=== PATIENT | male | born 1960 | race Caucasian/White ===

== ENCOUNTER 2022-02-25 22:29 | Observation (INO) | payer BC, OTHER ==
[~2022-02-25] VITALS: Ht 180.3 cm; Wt 64.9 kg
[2022-02-25] MEDS ORDERED: NS IV 1000 ML 1,000 ML IV SCH (22:45)
[2022-02-25] MEDS ORDERED: TETANUS,DIPTH,PERTUSS P/F (BOOSTRIX) 0.5 ML VIAL IM ONE (22:45)
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
[2022-02-25 23:09] LABS: BASOPHILS # (AUTO) 0.1 10^3/uL (0.0-0.1); BASOPHILS % (AUTO) 1 % (0-10); EOSINOPHILS # (AUTO) 0.1 10^3/uL (0.0-0.3); EOSINOPHILS % (AUTO) 1 % (0-10); HEMATOCRIT 40 % (40-54); HEMOGLOBIN 14.7 g/dL (13.3-17.7); LYMPHOCYTES # (AUTO) 1.2 10^3/uL (1.0-4.0); LYMPHOCYTES % (AUTO) 13 % (12-44); MEAN CORPUSCULAR HEMOGLOBIN 31 pg (25-34); MEAN CORPUSCULAR HGB CONC 37 g/dL (32-36); MEAN CORPUSCULAR VOLUME 85 fL (80-99); MONOCYTES # (AUTO) 0.4 10^3/uL (0.0-1.0); MONOCYTES % (AUTO) 4 % (0-12); NEUTROPHILS # (AUTO) 7.4 10^3/uL (1.8-7.8); NEUTROPHILS % (AUTO) 81 % (42-75); PLATELET COUNT 218 10^3/uL (130-400); WHITE BLOOD COUNT 9.1 10^3/uL (4.3-11.0)
[2022-02-25] MEDS ORDERED: NS 100 ML (IVPB) BAG IV ONE (23:15)
[2022-02-25] MEDS ORDERED: IOHEXOL 350 MG/ML 100 ML (OMNIPAQUE 350) VIAL IV ONE (23:15)
[2022-02-25] MEDS ORDERED: HOLD METFORMIN - RECEIVED CONTRAST 20 ML VIAL IV SCH (23:15)
[2022-02-25] MEDS ORDERED: CATHETER FLUSH 10 ML SYR IV PRN (23:15)
[2022-02-25 23:16] LABS: FIBRIN DEGRADATION PRODUCTS 2.16 UG/ML (0.00-0.49); INR 0.9 (0.8-1.4); PROTHROMBIN TIME PATIENT 12.4 SEC (12.2-14.7)
[2022-02-25 23:25] LABS: ALANINE AMINOTRANSFERASE < 6 U/L (0-55); ALBUMIN 3.3 GM/DL (3.2-4.5); ALKALINE PHOSPHATASE 93 U/L (40-136); AMYLASE 95 U/L (25-125); BILIRUBIN,TOTAL 0.5 MG/DL (0.1-1.0); BUN/CREATININE RATIO 11; CALCIUM 8.4 MG/DL (8.5-10.1); CARBON DIOXIDE 21 MMOL/L (21-32); CHLORIDE 99 MMOL/L (98-107); CREATINE KINASE 79 U/L (30-200); CREATININE SERUM 1.17 MG/DL (0.60-1.30); GFR ESTIMATED 71; LIPASE 45 U/L (8-78); MAGNESIUM 1.7 MG/DL (1.6-2.4); SODIUM 134 MMOL/L (135-145); TOTAL PROTEIN 5.5 GM/DL (6.4-8.2)
[2022-02-25 23:34] LABS: ACETAMINOPHEN < 10 UG/ML (10-30); GLUCOSE 603 MG/DL (70-105)
[2022-02-26] MEDS ORDERED: NS IV 1000 ML 1,000 ML IV SCH
[2022-02-26] MEDS ORDERED: inSUlin (REGULAR) HUMAN 1 UNIT/0.01 ML (CHARGE PER UNIT) IV ONE
[2022-02-26] MEDS ORDERED: LIDOCAINE 2% VISCOUS 15 ML UDC MM ONE (00:15)
[2022-02-26 00:25] LABS: BILIRUBIN,URINE NEGATIVE (NEGATIVE); CLARITY,URINE CLEAR; COLOR,URINE YELLOW; GLUCOSE, URINE (UA) 3+ (NEGATIVE); KETONES,URINE 1+ (NEGATIVE); LEUKOCYTE ESTERASE ,URINE NEGATIVE (NEGATIVE); NITRITE,URINE NEGATIVE (NEGATIVE); PROTEIN,URINE NEGATIVE (NEGATIVE)
[2022-02-26 00:37] LABS: BACTERIA,URINE NEGATIVE /HPF
[2022-02-26 00:38] LABS: AMPHETAMINE SCREEN, URINE NEGATIVE (NEGATIVE); BARBITURATE SCREEN URINE NEGATIVE (NEGATIVE); BENZODIAZEPINES SCREEN URINE NEGATIVE (NEGATIVE); CANNABINOID SCREEN, URINE NEGATIVE (NEGATIVE); COCAINE SCREEN URINE NEGATIVE (NEGATIVE); METHADONE STAT NEGATIVE (NEGATIVE); OPIATE SCREEN URINE NEGATIVE (NEGATIVE); OXYCODONE STAT NEGATIVE (NEGATIVE); PROPOXYPHENE STAT NEGATIVE (NEGATIVE); TRICYCLIC ANTIDEPRESSANTS SCRE NEGATIVE (NEGATIVE)
[2022-02-26] MEDS ORDERED: PATIENT MAY USE OWN MEDS, ALL MC SCH ×3 (01:45→13:30)
[2022-02-26] MEDS ORDERED: KETOROLAC 30 MG/ML VIAL IV PRN (02:15)
[2022-02-26] MEDS ORDERED: ONDANSETRON 4 MG/2 ML (SDV) Z0FRAN IV PRN (02:15)
[2022-02-26] MEDS ORDERED: fentaNYL INJ 100 MCG/2 ML AMP IV PRN (02:15)
[2022-02-26] MEDS: NS IV 1000 ML 1,000 ML IV SCH ×2 (02:21→08:49)
[2022-02-26 03:22] VITALS: BP 127/78
[2022-02-26 06:00] LABS: BASOPHILS % (AUTO) 0 % (0-10); EOSINOPHILS # (AUTO) 0.2 10^3/uL (0.0-0.3); EOSINOPHILS % (AUTO) 2 % (0-10); HEMATOCRIT 38 % (40-54); HEMOGLOBIN 13.1 g/dL (13.3-17.7); LYMPHOCYTES # (AUTO) 1.6 10^3/uL (1.0-4.0); LYMPHOCYTES % (AUTO) 18 % (12-44); MEAN CORPUSCULAR HEMOGLOBIN 30 pg (25-34); MEAN CORPUSCULAR HGB CONC 34 g/dL (32-36); MEAN CORPUSCULAR VOLUME 87 fL (80-99); MEAN PLATELET VOLUME 9.7 fL (9.0-12.2); MONOCYTES # (AUTO) 0.5 10^3/uL (0.0-1.0); MONOCYTES % (AUTO) 5 % (0-12); NEUTROPHILS # (AUTO) 6.6 10^3/uL (1.8-7.8); NEUTROPHILS % (AUTO) 74 % (42-75); PLATELET COUNT 186 10^3/uL (130-400)
[2022-02-26 06:17] LABS: CALCIUM 7.8 MG/DL (8.5-10.1)
[2022-02-26 06:21] LABS: CREATININE SERUM 0.78 MG/DL (0.60-1.30)
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
[2022-02-26] MEDS: inSUlin ASPART (NovoLOG) 1 UNIT/0.01 ML (CHARGE PER UNIT) SC SCH ×2 (06:28→11:31)
--- NOTE | 2022-02-26 06:39 | Diagnostic Imaging Report ---
EXAMINATION: CT chest, abdomen and pelvis with intravenous contrast. TECHNIQUE: Multiple contiguous axial images were obtained through the chest, abdomen and pelvis after the uneventful administration of intravenous contrast. All CT scans use one or more of the following dose optimizing techniques: automated exposure control, MA and/or KvP adjustment based on patient size and exam type or iterative reconstruction. HISTORY: Chest and abdominal pain after injury COMPARISON: None available. FINDINGS: Thyroid: The visualized thyroid gland is normal. Mediastinum: Heart size is normal without significant pericardial effusion. The aorta is normal in caliber. No suspicious lymphadenopathy. Lungs and airways: The lungs are clear without consolidation, pleural effusion, or pneumothorax. There are a few nodules within the bilateral lower lobes measuring up to 0.6 cm in the medial right lower lobe (series 3 image 105).. The airways are normal. Solid organs: Indeterminate 1.3 cm hypoattenuating lesion within the right hepatic lobe. The gallbladder is normal. There is no biliary ductal dilation. Pancreas is normal. Spleen is normal. Adrenal glands are normal. The kidneys are normal without hydronephrosis. Bowel: The stomach and small bowel are normal without obstruction. The colon and appendix are normal. Peritoneum: There is no intraperitoneal free fluid or free air. No suspicious lymphadenopathy. Vasculature: Calcification of the aorta without aneurysm. Musculoskeletal: No suspicious osseous lesion or compression fracture. Pelvis: The prostate gland is normal. The urinary bladder is normal. IMPRESSION: 1. No acute abnormality in the chest, abdomen, or pelvis. 2. Pulmonary nodules measuring up to 0.[address] chest in 6-12 months. 3. Agree with preliminary interpretation. Dictated by: Dictated on workstation # [id number]
--- NOTE | 2022-02-26 07:10 | Diagnostic Imaging Report ---
EXAMINATION: Right femur radiograph EXAM DATE: 02/26/2022 12:08 AM COMPARISON: None available. HISTORY: Right leg pain TECHNIQUE: 4 views FINDINGS: There is no acute fracture, dislocation, or destructive osseous process. Surgical changes from total right knee arthroplasty. The soft tissues are normal. IMPRESSION: 1. No acute osseous abnormality. Dictated by: Dictated on workstation # [id number]
--- NOTE | 2022-02-26 07:11 | Diagnostic Imaging Report ---
EXAMINATION: CT thoracic and lumbar spine without contrast. TECHNIQUE: Multiple contiguous axial images were obtained through the thoracic and lumbar spine without the use of intravenous contrast. Sagittal and coronal reformations were then performed. All CT scans use one or more of the following dose optimizing techniques: automated exposure control, MA and/or KvP adjustment based on patient size and exam type or iterative reconstruction. HISTORY: Back pain after injury COMPARISON: None available. FINDINGS: The alignment of the thoracic and lumbar spine is normal. There is mild compression deformity of the T4 vertebral body. Vertebral body heights are otherwise maintained. Facet joints are normal. Disk heights are normal. Prominent posterior spondylosis at T7-T8 resulting in mild central canal stenosis. Limited views of the soft tissues show no abnormality. There are vascular calcifications of the aorta without aneurysm. IMPRESSION: 1. Age-indeterminate mild T4 compression fracture. Recommend correlation with physical exam. MRI thoracic spine would be more sensitive for evaluation of acute fracture. 2. Agree with preliminary interpretation. Dictated by: Dictated on workstation # [id number]
[2022-02-26 07:15] VITALS: BP 102/63
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
--- NOTE | 2022-02-26 07:23 | Diagnostic Imaging Report ---
EXAMINATION: Left forearm radiograph EXAM DATE: 02/26/2022 12:08 AM COMPARISON: None available. HISTORY: forearm pain TECHNIQUE: 2 views FINDINGS: There is no acute fracture, dislocation, or destructive osseous process. The joint spaces are normal. The soft tissues are normal. IMPRESSION: 1. No acute osseous abnormality. Dictated by: Dictated on workstation # [id number]
--- NOTE | 2022-02-26 07:23 | Diagnostic Imaging Report ---
EXAMINATION: Left humerus radiograph EXAM DATE: 02/26/2022 12:08 AM COMPARISON: None available. HISTORY: Left arm pain TECHNIQUE: 2 views FINDINGS: There is no acute fracture, dislocation, or destructive osseous process. The joint spaces are normal. The soft tissues are normal. IMPRESSION: 1. No acute osseous abnormality. Dictated by: Dictated on workstation # [id number]
--- NOTE | 2022-02-26 07:24 | Diagnostic Imaging Report ---
EXAMINATION: Pelvis radiograph EXAM DATE: 02/26/2022 12:08 AM COMPARISON: None available. HISTORY: pelvic pain TECHNIQUE: 1 views FINDINGS: There is no acute fracture, dislocation, or destructive osseous process. The joint spaces are normal. The soft tissues are normal. IMPRESSION: 1. No acute osseous abnormality. Dictated by: Dictated on workstation # [id number]
[2022-02-26 11:14] VITALS: BP 118/79
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
--- NOTE | 2022-02-26 12:19 | Discharge Inst-Simple/Standard ---
Discharge Inst-Standard Patient Instructions/Follow Up Plan of Care/Instructions/FU: Needs follow up within one week with your primary physician. Would not drive until cleared by your physician. Activity as Tolerated: No (No strenous activity.) Discharge Diet: Regular Diet (diabetic diet) Other Inst to Patient Follow up Appt: Make appointment for 1 week with you primary physician. Do not drive. You need follow up imaging in near future based on findings. Have your physician obtain these to know future needs. Instructions: No driving till cleared by physician No strenuous activity. May shower in 24 hours, no tub bath or soaking. Use incentive spirometer at home as directed. No Smoking Symptoms to Report: Appetite Changes, Extremity Discoloration, Numbness/Tingling, Swelling Increased, Bleeding Excessive, Eyesight Changes, Pain Increased, Urine Color Change, Constipation(Persistent), Fever over 101 degree F, Pain/Pressure in chest, Urinating Difficulty, Cough Up/Vomit Blood, Heart Beat Irreg/Pounding, Pain/Pressure in jaw, Vaginal Bleeding Increase, Cramps in feet or legs, Lightheadedness, Pain/Pressure in shoulder, Diarrhea(Persistent), Memory Changes Suddenly, Questions/Concerns, Weight gain consecutive days, Dizziness/Fainting, Nausea/Vomiting, Shortness of Breath, Weight gain over 2 pounds If questions or concerns contact your physician Or seek help at emergency department. NEISHA CARTER DO Feb 26, 2022 12:19
--- NOTE | 2022-02-26 12:24 | History & Physical-Surgical ---
History of Present Illness History of Present Illness Reason for visit/HPI CC: loc after ran over by cows. 61 year old male who was ran over by cows in a chute. He was loading them when on knocked him over and 5 others ran over him. He states he thinks he had LOC, but not sure cause he states pain tolerance is low. Patient feeling okay now. He has pain in right thigh and left shoulder. No other complaints. Wanting to go home now due to needing to get to his truck. Denies n/v fever sweats chills shortness of breath or chest pain at this time. Imaging showing t4 compression fracture unkown age, pulmonary nodules,left thyroid nodule, Date of Admission Feb 26, 2022 at 00:25 Date Seen by a Provider: Feb 26, 2022 Time Seen by a Provider: 11:46 I consulted on this patient on 02/26/22 12:19 Attending Physician No,Local Physician Admitting Physician Admitting Physician: Neisha Corado DO Attending Physician: Neisha Corado DO Consult Allergies and Home Medications Allergies Coded Allergies: No Known Drug Allergies (Unverified , 02/25/22) Patient Home Medication List Home Medication List Reviewed: Yes (patient unknown what meds take) Past [id number] Hx Patient Social History Smoking Status: Current Everyday Smoker Alcohol Use?: No Have you traveled recently?: Yes Surgeries History of Surgeries: Yes (BILATERAL KNEE REPLACEMENTS) Surgeries: Joint Replacement, Orthopedic, Tonsillectomy Respiratory History of Respiratory Disorde: No Cardiovascular History of Cardiac Disorders: No Cardiac Disorders: High Cholesterol Neurological History of Neurological Disord: No Genitourinary History of Genitourinary Disor: No Gastrointestinal History of Gastrointestinal Di: No Musculoskeletal History of Musculoskeletal Dis: Yes (BILATERAL KNEE REPLACEMENTS) Musculoskeletal Disorders: Arthritis Endocrine History of Endocrine Disorders: Yes Endocrine Disorders: Diabetes, Non-Insulin dep HEENT History of HEENT Disorders: No Cancer History of Cancer: No Psychosocial History of Psychiatric Problem: No Integumentary History of Skin or Integumenta: No Blood Transfusions History of Blood Disorders: No Reviewed Nursing Assessment Reviewed/Agree w Nursing PMH: Yes Family Medical History Significant Family History: No Pertinent Family Hx Review of Systems Constitutional: No chills, No diaphoresis EENTM: No blurred vision, No double vision Respiratory: No cough, No dyspnea on exertion Cardiovascular: No chest pain, No palpitations Gastrointestinal: No nausea, No vomiting Genitourinary: No decreased output, No discharge Musculoskeletal: No back pain; joint pain Skin: No change in color, No change in hair/nails Psychiatric/Neurological: Denies Anxiety, Denies Depressed, Denies Emotional Problems All Other Systems Reviewed Negative Unless Noted: Yes (Negative excepted noted.) Physical Exam Vital Signs Vital Signs - First Documented 02/25/22 22:32 Temp 36.8 Pulse 90 Resp 16 B/P (MAP) 109/76 (87) Pulse Ox 98 O2 Delivery Room Air Capillary Refill : Less Than 3 Seconds Height, Weight, BMI Height: '" Weight: lbs. oz. kg; 20.11 BMI Method: General Appearance: No Apparent Distress, Thin HEENT: PERRL/EOMI, Normal ENT Inspection Neck: Non Tender, Supple Respiratory: Chest Non Tender, No Accessory Muscle Use, No Respiratory Distress Cardiovascular: Regular Rate, Rhythm, No JVD Gastrointestinal: Non Tender, Soft Rectal: Deferred Back: No CVA Tenderness Extremity: Other (right thigh, left should pain) Neurologic/Psychiatric: Alert, Oriented x3, Normal Mood/Affect Skin: Normal Color, Warm/Dry Lymphatic: No Adenopathy Data Review Labs Laboratory Tests 02/25/22 22:45: White Blood Count 9.1, Red Blood Count 4.72, Hemoglobin 14.7, Hematocrit 40, Mean Corpuscular Volume 85, Mean Corpuscular Hemoglobin 31, Mean Corpuscular Hemoglobin Concent 37H, Red Cell Distribution Width 13.0, Platelet Count 218, Mean Platelet Volume 10.0, Immature Granulocyte % (Auto) 0, Neutrophils (%) (Auto) 81H, Lymphocytes (%) (Auto) 13, Monocytes (%) (Auto) 4, Eosinophils (%) (Auto) 1, Basophils (%) (Auto) 1, Neutrophils # (Auto) 7.4, Lymphocytes # (Auto) 1.2, Monocytes # (Auto) 0.4, Eosinophils # (Auto) 0.1, Basophils # (Auto) 0.1, Immature Granulocyte # (Auto) 0.0, Prothrombin Time 12.4, INR Comment 0.9, Activated Partial Thromboplast Time 23L, D-Dimer 2.16H, Sodium Level 134L, Potassium Level 4.0, Chloride Level 99, Carbon Dioxide Level 21, Anion Gap 14, Blood Urea Nitrogen 13, Creatinine 1.17, Estimat Glomerular Filtration Rate 71, BUN/Creatinine Ratio 11, Glucose Level 603*H, Calcium Level 8.4L, Corrected Calcium 9.0, Magnesium Level 1.7, Total Bilirubin 0.5, Aspartate Amino Transf (AST/SGOT) 15, Alanine Aminotransferase (ALT/SGPT) < 6, Alkaline Phosphatase 93, Total Creatine Kinase 79, Creatine Kinase MB 2.0, Myoglobin 223.1H, Troponin I < 0.028, Total Protein 5.5L, Albumin 3.3, Amylase Level 95, Lipase 45, Acetaminophen Level < 10L, Serum Alcohol < 10, SARS-CoV-2 RNA (RT-PCR) Not Detected 02/26/22 00:13: Urine Color YELLOW, Urine Clarity CLEAR, Urine pH 6.0, Urine Specific Blaine <=1.005, Urine Protein NEGATIVE, Urine Glucose (UA) 3+H, Urine Ketones 1+H, Urine Nitrite NEGATIVE, Urine Bilirubin NEGATIVE, Urine Urobilinogen 1.0, Urine Leukocyte Esterase NEGATIVE, Urine RBC (Auto) NEGATIVE, Urine RBC NONE, Urine WBC NONE, Urine Crystals NONE, Urine Bacteria NEGATIVE, Urine Casts NONE, Urine Mucus NEGATIVE, Urine Culture Indicated NO, Urine Opiates Screen NEGATIVE, Urine Oxycodone Screen NEGATIVE, Urine Methadone Screen NEGATIVE, Urine Propoxyphene Screen NEGATIVE, Urine Barbiturates Screen NEGATIVE, Ur Tricyclic Antidepressants Screen NEGATIVE, Urine Phencyclidine Screen NEGATIVE, Urine Amphetamines Screen NEGATIVE, Urine Methamphetamines Screen NEGATIVE, Urine Benzodiazepines Screen NEGATIVE, Urine Cocaine Screen NEGATIVE, Urine Cannabinoids Screen NEGATIVE 02/26/22 05:26: White Blood Count 9.0, Red Blood Count 4.37, Hemoglobin 13.1L, Hematocrit 38L, Mean Corpuscular Volume 87, Mean Corpuscular Hemoglobin 30, Mean Corpuscular Hemoglobin Concent 34, Red Cell Distribution Width 13.2, Platelet Count 186, Mean Platelet Volume 9.7, Immature Granulocyte % (Auto) 0, Neutrophils (%) (Auto) 74, Lymphocytes (%) (Auto) 18, Monocytes (%) (Auto) 5, Eosinophils (%) (Auto) 2, Basophils (%) (Auto) 0, Neutrophils # (Auto) 6.6, Lymphocytes # (Auto) 1.6, Monocytes # (Auto) 0.5, Eosinophils # (Auto) 0.2, Basophils # (Auto) 0.0, Immature Granulocyte # (Auto) 0.0, Sodium Level 136, Potassium Level 4.0, Chloride Level 106, Carbon Dioxide Level 19L, Anion Gap 11, Blood Urea Nitrogen 10, Creatinine 0.78, Estimat Glomerular Filtration Rate 101, BUN/Creatinine Ratio 13, Glucose Level 303H, Calcium Level 7.8L 02/26/22 11:16: Glucometer 173H Assessment/Plan Assessment/Plan Admission Diagonsis trampled by cows closed head injury c LOC t4 compression fx undetermined age (not painful) left thryoid nodule pulmonary nodules DM Admission Status: Observation Assessment/Plan Patient doing well and daughter at bedside wanting to go home instructed needs follow up with PCP in 1 week in [facility]. Not to drive until cleared by physician Needs further imaging per recs in radiological reads they understands Dc home. Final Diagnosis trampled by cows closed head injury c LOC t4 compression fx undetermined age (not painful) left thryoid nodule pulmonary nodules NEISHA ANDERSON DO Feb 26, 2022 12:24
== END 2022-02-26 12:15 | disposition home or self-care (01) ==
LOC: ER 22:43 → UNDOADMOB 22:44 → 4TH 22:44 → UNDOADMOB 02-26 00:25 → 4TH 02-26 00:25 → UNDODISOB 02-26 13:07
PROVIDERS: ADMIT Surgery; ATTEND Surgery
DX: S06.9X9A Unspecified intracranial injury with loss of consciousness of unspecified duration, initial encounter (principal); M48.54XA Collapsed vertebra, not elsewhere classified, thoracic region, initial encounter for fracture; E04.1 Nontoxic single thyroid nodule; R91.1 Solitary pulmonary nodule; E11.9 Type 2 diabetes mellitus without complications; W55.22XA Struck by cow, initial encounter; F17.210 Nicotine dependence, cigarettes, uncomplicated
CPT/HCPCS: 70450; 71045; 71260; 72125; 72128; 72131; 72170; 73060; 73090; 73552; 74177; 80048; 80053; 80306; 81000; 82150; 82550; 82553; 82947; 83690; 83735; 83874; 84484; 85025; 85379; 85610; 85730; 86850; 86900; 86901; 87636; 90471; 93005; 93041; 96372; 96374; 99284; G0378; G0480 ×2; 36415; 80320; 80329